=== PATIENT | male | born 1990 | race Hispanic/Latino ===

== ENCOUNTER 2017-01-04 18:26 | Emergency (ER) | payer SELFPAY ==
[2017-01-04] MEDS ORDERED: ZOFRAN ODT PO ONE (18:39)
[2017-01-04 19:01] LABS: Eosinophils % (Auto) 0.9 % (0.0-4.3); Hematocrit 51.1 % (35.5-45.6); Mean Corpuscular HGB Conc 33 % (32-34); Mean Corpuscular Hemoglobin 30 pg (28-32); Mean Corpuscular Volume 89 fl (84-94); Platelet Count 280 K/mm3 (140-440); Red Blood Count 5.74 M/mm3 (3.65-5.03); Red Cell Distribution Width 13.4 % (13.2-15.2); White Blood Count 14.7 K/mm3 (4.5-11.0)
[2017-01-04 19:19] LABS: Anion Gap 20 mmol/L; Blood Urea Nitrogen 10 mg/dL (9-20); Carbon Dioxide 19 mmol/L (22-30); Chloride 104.2 mmol/L (98-107); Glucose 115 mg/dL (75-100); Potassium 4.4 mmol/L (3.6-5.0); Sodium 139 mmol/L (137-145)
[2017-01-04] MEDS ORDERED: NORMODYNE IV ONE (21:21)
[2017-01-04] MEDS ORDERED: NACL 0.9% 1000 ML 1,000 ML IV ONE (21:22)
[2017-01-04] MEDS ORDERED: MORPHINE IV ONE (21:22)
[2017-01-04] MEDS ORDERED: PERCOCET 5/325 PO ONE (22:32)
[2017-01-04] MEDS ORDERED: TORADOL IV ONE (22:33)
[2017-01-04] MEDS ORDERED: APRESOLINE IV ONE (22:33)
[2017-01-04] MEDS ORDERED: SUBLIMAZE IV ONE (22:33)
--- NOTE | 2017-01-04 22:34 | Emergency Department Report ---
ED Chest Pain HPI - General Chief Complaint: Chest Pain Stated Complaint: CHEST PAIN Time Seen by Provider: 01/04/17 21:17 Source: patient Mode of arrival: Ambulatory Limitations: No Limitations - History of Present Illness Initial Comments: Patient is a 26-year-old male past medical history hypertension who presents with left-sided chest pain has been going on for the last 2 days. Patient states the pain is a 9 out of 10 sharp pain touch in the left side of his chest and breathing makes it worse and that makes it better. Patient was lifting boxes yesterday and he experiencing some pain on the left side of his chest. Patient awoke today with more left-sided chest pain and some vomiting. Patient states that he smokes. Severity scale (0 -10): 7 - Related Data Previous Rx's Medication Instructions Recorded Last Taken Type Naproxen [Naprosyn] 375 mg PO BID #20 tablet 01/05/17 Unknown Rx amLODIPine [Norvasc] 5 mg PO DAILY #30 tab 01/05/17 Unknown Rx Allergies Allergy/AdvReac Type Severity Reaction Status Date / Time No Known Allergies Allergy Unverified 01/04/17 18:38 Heart Score - HEART Score History: Slightly suspicious EKG: Normal Age: < 45 Risk factors: 1-2 risk factors Troponin: < normal limit HEART Score: 1 ED Review of Systems ROS: Stated complaint: CHEST PAIN Other details as noted in HPI Constitutional: denies: chills, fever Eyes: denies: eye pain, eye discharge, vision change ENT: denies: ear pain, throat pain Respiratory: denies: cough, shortness of breath, wheezing Cardiovascular: chest pain. denies: palpitations Endocrine: no symptoms reported Gastrointestinal: nausea. denies: abdominal pain, diarrhea Genitourinary: denies: urgency, dysuria Musculoskeletal: denies: back pain, joint swelling, arthralgia Skin: denies: rash, lesions Neurological: denies: headache, weakness, paresthesias Psychiatric: denies: anxiety, depression Hematological/Lymphatic: denies: easy bleeding, easy bruising ED Past Medical Hx - Past Medical History Previous Medical History?: Yes Hx Hypertension: Yes (JUST DIAGNOSISED) - Surgical History Hx Appendectomy: Yes - Social History Smoking Status: Current Every Day Smoker Substance Use Type: None - Medications Home Medications: Home Medications Medication Instructions Recorded Confirmed Last Taken Type Naproxen [Naprosyn] 375 mg PO BID #20 tablet 01/05/17 Unknown Rx amLODIPine [Norvasc] 5 mg PO DAILY #30 tab 01/05/17 Unknown Rx ED Physical Exam - General Limitations: No Limitations General appearance: alert, in no apparent distress - Head Head exam: Present: atraumatic, normocephalic - Eye Eye exam: Present: normal appearance - ENT ENT exam: Present: mucous membranes moist - Neck Neck exam: Present: normal inspection - Respiratory Respiratory exam: Present: normal lung sounds bilaterally, chest wall tenderness (left sided). Absent: respiratory distress - Cardiovascular Cardiovascular Exam: Present: regular rate, normal rhythm. Absent: systolic murmur, diastolic murmur, rubs, gallop - GI/Abdominal GI/Abdominal exam: Present: soft, normal bowel sounds - Rectal Rectal exam: Present: deferred - Extremities Exam Extremities exam: Present: normal inspection - Back Exam Back exam: Present: normal inspection - Neurological Exam Neurological exam: Present: alert, oriented X3, CN II-XII intact - Psychiatric Psychiatric exam: Present: normal affect, normal mood - Skin Skin exam: Present: warm, dry, intact, normal color. Absent: rash ED Course Vital Signs 01/04/17 01/04/17 01/04/17 18:35 20:59 21:01 Temperature 98.5 F Pulse Rate 89 Respiratory 22 Rate Blood Pressure 201/133 215/143 215/143 O2 Sat by Pulse 99 98 Oximetry 01/04/17 01/04/17 01/04/17 21:16 21:38 21:40 Temperature Pulse Rate 74 76 83 Respiratory 16 23 Rate Blood Pressure 215/143 198/148 O2 Sat by Pulse 96 99 Oximetry 01/04/17 01/04/17 01/04/17 21:45 22:00 22:15 Temperature Pulse Rate 74 66 70 Respiratory 8 L 20 18 Rate Blood Pressure 192/136 190/127 206/140 O2 Sat by Pulse 94 91 91 Oximetry 01/04/17 01/04/17 01/04/17 22:30 22:45 22:46 Temperature Pulse Rate 82 78 82 Respiratory 20 19 Rate Blood Pressure 187/126 179/120 O2 Sat by Pulse 93 92 Oximetry 01/04/17 01/04/17 01/04/17 23:00 23:10 23:15 Temperature Pulse Rate 83 85 84 Respiratory 20 17 21 Rate Blood Pressure 193/130 193/130 195/122 O2 Sat by Pulse 92 96 92 Oximetry 01/04/17 01/04/17 01/04/17 23:16 23:30 23:45 Temperature Pulse Rate 84 87 81 Respiratory 18 22 17 Rate Blood Pressure 193/130 192/125 193/124 O2 Sat by Pulse 97 93 92 Oximetry 01/05/17 01/05/17 01/05/17 00:00 00:15 00:30 Temperature Pulse Rate 85 77 81 Respiratory 18 18 18 Rate Blood Pressure 201/131 186/122 186/122 O2 Sat by Pulse 89 94 96 Oximetry 01/05/17 01/05/17 01/05/17 00:45 01:00 01:15 Temperature Pulse Rate 70 73 74 Respiratory 20 14 24 Rate Blood Pressure 170/98 181/109 177/119 O2 Sat by Pulse 91 92 94 Oximetry - Reevaluation(s) Reevaluation #1: 01/05/17 01:27 Patient's blood pressure has decreased after IV Dilaudid and oral naproxen. I' ll send patient home to follow-up with a primary care provider. ADRIANNA score - Adrianna Score Age > 65: (0) No Aspirin use within the Past 7 Days: (0) No 3 or more CAD Risk Factors: (0) No 2 or more Angina events in past 24 hrs: (0) No Known CAD with more than 50% Stenosis: (0) No Elevated Cardiac Markers: (0) No ST Deviation Greater than 0.5mm: (0) No ADRIANNA Score: 0 ED Medical Decision Making - Lab Data Result diagrams: 01/04/17 18:41 01/04/17 18:41 Lab Results 01/04/17 01/04/17 01/04/17 Range/Units 18:41 18:41 21:06 WBC 14.7 H (4.5-11.0) K/mm3 RBC 5.74 H (3.65-5.03) M/mm3 Hgb 17.0 H (11.8-15.2) gm/dl Hct 51.1 H (35.5-45.6) % MCV 89 (84-94) fl MCH 30 (28-32) pg MCHC 33 (32-34) % RDW 13.4 (13.2-15.2) % Plt Count 280 (140-440) K/mm3 Lymph % (Auto) 17.8 (13.4-35.0) % [place] % (Auto) 6.0 (0.0-7.3) % Eos % (Auto) 0.9 (0.0-4.3) % Baso % (Auto) 1.0 (0.0-1.8) % Lymph # 2.6 (1.2-5.4) K/mm3 [place] # 0.9 H (0.0-0.8) K/mm3 Eos # 0.1 (0.0-0.4) K/mm3 Baso # 0.1 (0.0-0.1) K/mm3 Seg Neutrophils % 74.3 H (40.0-70.0) % Seg Neutrophils # 10.9 H (1.8-7.7) K/mm3 Sodium 139 (137-145) mmol/L Potassium 4.4 (3.6-5.0) mmol/L Chloride 104.2 (98-107) mmol/L Carbon Dioxide 19 L (22-30) mmol/L Anion Gap 20 mmol/L BUN 10 (9-20) mg/dL Creatinine 0.8 (0.8-1.5) mg/dL Estimated GFR > 60 ml/min BUN/Creatinine Ratio 12.50 % Glucose 115 H (75-100) mg/dL Calcium 9.0 (8.4-10.2) mg/dL Troponin T < 0.010 < 0.010 (0.00-0.029) ng/mL - EKG Data -: EKG Interpreted by Tn - EKG Data 01/05/17 01:23 EKG shows normal sinus rhythm no ST segment elevation or T wave inversion normal axis. - Radiology Data Radiology results: image reviewed Chest x-ray: Shows no acute cardiopulmonary disease. - Medical Decision Making Chief medical diagnosis: Costochondritis Differential medical diagnosis: Pneumothorax, bruised rib, pleurisy, stable angina On EKG, troponin, CBC, CMP, chest x-ray, IV pain medication, oral pain medication Patient states that pain has improved but still there I will send patient home with naproxen and amlodipine for his blood pressure spent 5 minutes discussing with the patient about the importance of quitting smoking for his health and for his high blood pressure. Patient states that he will try to quit. Critical care attestation.: If time is entered above; I have spent that time in minutes in the direct care of this critically ill patient, excluding procedure time. ED Disposition Clinical Impression: Pleuritic chest pain, Nausea, Tobacco abuse counseling HTN (hypertension) Qualifiers: Hypertension type: essential hypertension Qualified Code(s): I10 - Essential ( primary) hypertension Disposition: TO HOME OR SELFCARE Is pt being admited?: No Does the pt Need Aspirin: No Condition: Stable Instructions: Chest Pain (ED), Costochondritis (ED), Hypertension (ED) Prescriptions: amLODIPine [Norvasc] 5 mg PO DAILY #30 tab Naproxen [Naprosyn] 375 mg PO BID #20 tablet Referrals: PRIMARY CARE, [Primary Care Provider] - 3-5 Days Forms: Work/School Release Form(ED)
[2017-01-05] MEDS ORDERED: DILAUDID IV ONE
[2017-01-05] MEDS ORDERED: XYLOCAINE TOPICAL 4% TP ONE (00:44)
[2017-01-05 01:18] VITALS: BP 177/119
--- NOTE | 2017-01-05 09:24 | XRay Report ---
ROUTINE CHEST, TWO VIEWS: History: Chest pain. PA and lateral views demonstrate the heart and mediastinal contour to be of normal size and shape. The lungs are clear and fully expanded and the soft tissues and bony structures are normal. IMPRESSION: Normal study.
== END 2017-01-05 01:25 | disposition home or self-care (01) ==
LOC: ED 18:26
DX: R07.89 Other chest pain (principal); R11.0 Nausea; I10 Essential (primary) hypertension; F17.200 Nicotine dependence, unspecified, uncomplicated
CPT/HCPCS: 36415; 71020; 80048; 84484; 85025; 93005; 93010; 96361; 96374; 96375; 99284; J0360; J1170; J1885; J2270; J3010; J7030; Q0162